=== PATIENT | female | born 1940 | race Caucasian/White ===

== ENCOUNTER 2018-01-05 09:03 | Inpatient (IN) ==
[~2018-01-05 09:03] MED LIST: ACETAMINOPHEN 500 MG TABLET PO ONE; DEXAMETHASONE 4 MG/ML INJECTION IVP ONE; EPINEPHrine PF 0.25 MG, BUPIVACAINE 0.25% PF 30 ML, KETOROLAC INJ 60 MG in NS 30 ML OPSITE ONE; FAMOTIDINE PB 20 MG/50 ML BAG IV ONE; MELOXICAM 15 MG TABLET PO ONE; METOCLOPRAMIDE 10mg/2ml INJECTION IVP ONE; ONDANSETRON 4 MG/2 ML INJECTION IVP ONE; TRANEXAMIC ACID 1,000 MG in NS 100 ML IV ONE
[2018-01-05] MEDS ORDERED: SALINE FLUSH 10ml SYRINGE IV PRN (09:14)
[2018-01-05 09:32] VITALS: BMI 26.9
[2018-01-05] MEDS ORDERED: PROPOFOL 500 MG/50 ML VIAL ONE (10:04)
--- NOTE | 2018-01-05 10:18 | XRay Report ---
Indication: right hip pain/fell PROCEDURE: XR pelvis w/ 1 view RT hip: Encounter: Initial Comparison: September 03, 2017 Findings: There is no acute fracture, dislocation or malalignment identified. Right hip replacement is stable in appearance. Moderate to severe joint space narrowing in the left hip. Pubic symphysis appears intact. Impression: No acute osseous abnormality. .
[2018-01-05] MEDS ORDERED: VANCOMYCIN 1,000 MG INJECTION ONE (10:42)
[2018-01-05] MEDS: LIDOCAINE 1% (10mg/ml) 2mL INJ PF SDV ID ONE ×2 (10:55→11:04)
[2018-01-05] MEDS: LR 1,000 ML IV SCH ×2 (10:55→12:15)
[2018-01-05] MEDS: NOZIN NASAL SWAB NAS SCH ×5 (11:04→21:00)
[2018-01-05] MEDS ORDERED: MIDAZOLAM 2mg/2ml INJECTION ONE (11:06)
[2018-01-05] MEDS ORDERED: METOPROLOL 5mg/5ml INJECTION IVP ONE ×3 (11:06→12:01)
[2018-01-05] MEDS ORDERED: BUPIVACAINE 0.75%/DEXTROSE 8.5% SPINAL 2 ML AMPULE IJ ONE (11:08)
[2018-01-05] MEDS ORDERED: SALINE FLUSH 10ml SYRINGE ONE (11:35)
[2018-01-05] MEDS ORDERED: PHENYLEPHRINE INJ 10 MG/ML VIAL IV ONE (11:35)
[2018-01-05] MEDS ORDERED: VANCOMYCIN 1,000 MG INJECTION IAR ONE (11:47)
[2018-01-05] MEDS ORDERED: CEFAZOLIN 1 G INJECTION IVP ONE (11:49)
[2018-01-05] MEDS ORDERED: ROPIVACAINE 0.5% (5mg/ml) 30ml INJ ONE (12:31)
--- NOTE | 2018-01-05 12:42 | Operative Note ---
- Procedure Preoperative Diagnosis: Left knee primary degenerative joint disease Postoperative Diagnosis: Same as preoperative diagnosis. Surgeon: Maryann Talley MD Exercise Rider: Emeka Livingston Complications: None. Anesthesia: Spinal. Estimated Blood Loss: See Anesthesia Record. Fluids: Please see Anesthesia Record. Description of Procedure: Mrs. Byrne and her left knee were identified and marked in the preoperative holding area. She was brought back to the operating suite. Spinal anesthetic was administered and she was placed supine on the operating table. The left lower extremity was prepped and draped in my normal sterile fashion. Timeout was performed. The [email or web address] robotic arm was used during the surgery. She had a correctable valgus deformity and hyperextension of about 3. A standard anterior midline incision followed by medial parapatellar arthrotomy was performed. Anterior fat pad and meniscus were removed. She exposed bone of the tibial plateau laterally as well as the undersurface of the patella. The patella was everted and a patella osteotomy was performed leaving 12 mm of bone. Tibial and femoral arrays and checkpoints were placed both within the original incision. The bone was then registered with the [email or web address] robot. Osteophytes were removed and gaps were captured both 90 and 0 degrees with correction. [email or web address] robotic software was utilized to obtain 18 mm gaps in flexion and 16 mm gaps in extension. The [email or web address] robotic arm was then used to assist with the bone cuts. Posterior osteophytes and remaining meniscus were removed. Trial components were placed. We used a 3 femur and a 3 tibia with a 9 mm spacer and a 29 patella. She tracked well and was well balanced throughout range of motion. The tibia was stamped at the proper rotation. Trial components fit well and bone quality was adequate so we proceeded with press-fit components. Components were press-fit into place. A final spacer was also placed. The knee was ranged one more time to ensure good stability, balance and patellar tracking. 1 g of vancomycin powder was then placed into the knee joint. The capsulotomy was then closed with #1 Vicryl. I then left my assistant activities director to close the subcutaneous tissue with 2-0 Vicryl. Running 4-0 Monocryl will be used in the subcuticular layer. Dermabond will be used on the skin followed by sterile dressing. After drapes are removed patient will be taken to recovery room under the care of anesthesia.
--- NOTE | 2018-01-05 12:54 | Anesthesia Preoperative Report ---
Anesthesia Preoperative Record - Date and Time Date: 01/05/18 Preoperative Diagnosis: Arthroplasty Total Knee w/ Robot Jared,M17.12 Proposed Procedure: Left TKA NPO Since Date: 01/05/18 NPO Since Time: 00:00 Allergies/Adverse Reactions: Allergies Allergy/AdvReac Type Severity Reaction Status Date / Time codeine Allergy Unknown NAUSEA & Verified 12/09/17 14:01 VOMITING hydrocodone Allergy Unknown Nausea and Verified 01/05/18 09:48 Vomiting Sulfa (Sulfonamide Allergy Unknown SWELLING Verified 12/09/17 14:01 Antibiotics) - Vital Signs Vital Signs: Temperature 97.6 F 01/05/18 09:32 Pulse Rate 133 H 01/05/18 10:36 Respiratory Rate 15 01/05/18 09:32 Blood Pressure 172/86 H 01/05/18 09:32 Pulse Oximetry 98 01/05/18 09:32 Height and Weight: Height 1.57 m Weight 66.7 kg Body Mass Index 26.9 - Medications Inpatient Medications: Current Medications Lactated Ringer's (Lactated Ringers) 1,000 mls @ 50 mls/hr IV .Q20H YECENIA Last Admin: 01/05/18 12:15 Dose: 50 mls/hr Sodium Chloride (Iv Flush) 10 - 80 ml IV PRN PRN PRN Reason: Flushing Home Medications: Home Medications Medication Instructions Recorded Confirmed Type cyclobenzaprine 5 mg tablet 5 - 10 mg PO TID PRN tab 09/03/17 01/05/18 History Ascorbate Calcium [Vitamin C] 500 mg PO DAILY 12/29/17 01/05/18 History Aspirin [Aspirin EC] 81 mg PO DAILY 12/29/17 01/05/18 History Diclofenac Sodium [Voltaren] 75 mg PO BID 12/29/17 01/05/18 History Estradiol [Estrace] 1 mg PO DAILY 12/29/17 01/05/18 History Furosemide [Lasix] 1 tab PO DAILY 12/29/17 01/05/18 History Gabapentin [Neurontin] 600 mg PO TID 12/29/17 01/05/18 History Lisinopril/Hctz 20/25 [Prinzide 1 tab PO DAILY 12/29/17 01/05/18 History 20/25] MedroxyPROGESTERone [Provera] 2.5 mg PO DAILY 12/29/17 01/05/18 History Vitamin B Complex [Balanced B-100] 1 each PO DAILY 12/29/17 01/05/18 History ergocalciferol (vitamin D2) 50,000 50,000 unit PO DAILY #2 cap 12/29/17 Rx unit capsule Omeprazole 20 mg PO PRN 01/05/18 01/05/18 History Is Patient on Beta Onesimo?: No - Medical History Respiratory: DENIES: Sleep Apnea Cardiovascular: Reports: Hypertension, High Cholesterol Neuro/Musculoskeletal: Reports: HX.MS.OSAR (knee problems), Back Problems ( spinal stenosis), Syncope - Surgical History GI Surgery/Treatments: Reports: Appendectomy, Cholecystectomy, Colonoscopy, EGD (esophagogastric fndoplsty) Surgery/Treatment: REPORT: Other (bladder lift) Musculoskeletal Surgery/Tx: Reports: Shoulder Arthroscopy (Rt RCR) Reproductive Surgery/Treatment: Reports: Hysterectomy, Other (cystocele rectocele repair vag vault) Anesthesia Reactions: None Hx Family Anesthesia Reaction: No History of Motion Sickness: No - Social History Smoking Status: Never smoker Hx Chewing Tobacco Use: No Second Hand Exposure: No Substance Use Type: does not use Alcohol Intake: never - Pertinent Findings Laboratory: CBC and BMP 01/05/18 09:54 01/05/18 09:54 BMP 01/05/18 09:54 Sodium 142 Potassium 3.6 Chloride 100 Carbon Dioxide 30 BUN 16.0 Creatinine 0.5 L Glucose 110 Calcium 9.6 Urine 01/05/18 Range/Units 10:27 Urine Color Yellow (YELLOW) Urine Clarity Clear Urine pH 6.0 (5.0-8.0) Ur Specific [place] 1.020 (1.015-1.025) Urine Protein Negative (NEGATIVE) Urine Glucose (UA) Negative (NEGATIVE) EKG: Sinus Tachycardia (Rate of 130's) - Physical Exam Respiratory Exam: Present: lungs clear Cardiovascular Exam: Present: regular rate and rhythm - Airway Assessment Mallampati Score: II TMD: 3 Fingerbreadths Neck Extension: fair Overall Assessment: no airway concerns - ASA ASA Score: 3 - Plan Anesthesia: Neuroaxial Regional/Trunk Block: Spinal - Discussion Discussion: Discussed risks/options/alternatives of anesthesia and questions answered. Patient consents. Nursing pain assessment noted. Present for Discussion: family member Attestation Statement: Prior to the delivery of any anesthetic medication, I examined the patient, developed the plan, obtained the patient's consent and discussed the risk and benefits of the procedure with the patient/guardian. - Additional Information Seen by Anesthesia: Yes
--- NOTE | 2018-01-05 12:56 | Anesthesia Procedure Note ---
Peripheral Nerve Blockade - Procedure Physician: Riki Talley MD Date: 01/05/18 Surgical Procedure: Left TKA Discussion: Discussed risks/options/alternatives of anesthesia and questions answered. Patient consents. Nursing pain assessment noted. Block Start: 12:50 Block Stop: 12:51 Blocked Employed: Adductor Canal Indication: Post-Operative Pain Approach: Left Side Confirmed Position: Supine Patient: Consent, Risks/Benefits Discussed, Informed, Post Block Act. Discussed IV Sedation: No Initial Vital Signs: Temperature 97.6 F 01/05/18 09:32 Temperature Source Oral 01/05/18 09:32 Pulse Rate 128 H 01/05/18 09:32 Respiratory Rate 15 01/05/18 09:32 Blood Pressure 172/86 H 01/05/18 09:32 Blood Pressure Mean 114 01/05/18 09:32 Blood Pressure Position Sitting 01/05/18 09:32 Pulse Oximetry 98 01/05/18 09:32 Oxygen Delivery Method 01/05/18 09:32 Post Vital Signs: Temperature 97.6 F 01/05/18 09:32 Pulse Rate 133 H 01/05/18 10:36 Respiratory Rate 15 01/05/18 09:32 Blood Pressure 172/86 H 01/05/18 09:32 Pulse Oximetry 98 01/05/18 09:32 Initial Pain Pain Score: 0 Post Block Pain Score: 0 Prep: Chlorhexadine/ETOH Ultrasound Used?: Yes - Injectate Ropivacaine (%): 0.5 Ropivacaine (mL): 20 Was Epi 1:200,000 Used?: No Injection: Injection made incrementally with constant monitoring and aspiration every ml
--- NOTE | 2018-01-05 13:19 | XRay Report ---
Indication: postoperative image PROCEDURE: XR knee LT 2V: Encounter: Initial Comparison: None Findings: Postoperative changes of left total knee replacement are seen. There is expected postoperative subcutaneous gas. No evidence of hardware failure or acute fracture. No retained radiopaque surgical instruments or sponges. Overlying material causing artifact. Impression: New left total knee prosthesis without evidence of immediate complication. .
[2018-01-05] MEDS ORDERED: DiphenhydrAMINE 25 MG CAPSULE PO PRN (13:51)
[2018-01-05] MEDS ORDERED: NOZIN NASAL SWAB NAS ONE (13:51)
[2018-01-05] MEDS ORDERED: DiphenhydrAMINE 50 MG/ML INJECTION IVP PRN (13:51)
[2018-01-05] MEDS ORDERED: LORazepam 1 MG TABLET PO PRN (13:51)
[2018-01-05] MEDS ORDERED: ONDANSETRON 4 MG/2 ML INJECTION IVP PRN (13:51)
[2018-01-05] MEDS ORDERED: CYCLOBENZAPRINE 5 MG TABLET PO PRN (13:51)
[2018-01-05] MEDS: NS 1,000 ML IV SCH (13:52)
--- NOTE | 2018-01-05 14:59 | Consult Note ---
Consult Information - Data of Consult Consult date: 01/05/18 Requesting Physician: Riki Talley MD Primary Care Provider: Fredrick Kellogg II, MD Family Provider: Fredrick Kellogg II, MD - Consult Narrative Reason for consult: sinus tachycardia History of present illness: Lacy Byrne is a pleasant 77 y/o woman seen in consultation from Dr. Talley. She was admitted on 01/05/18 for an elective left knee arthroplasty. Prior to surgery , she was found to be in sinus tachycardia with a rate of 123. She was given IV beta alyssa which brought her rate down and Dr. Talley proceeded with surgery. She was seen in room 123, alert and oriented, with several family members at bedside. She denies ever having this before. She denies any chest pain, dyspnea at rest or on exertion, unilateral or b/l leg swelling, anxiety or panic attacks, vomiting or diarrhea. She denies any recent fever or chills, cough, congestion, or dysuria. She c/o urinary frequency and urgency. Per her family, she is a very busy woman and will work until all the work is done, and the last 2 days has actually been cleaning excessively. She admits that she probably isn't eating as well and as much as she should be -- and family report that after her in September, at one point she was only eating a breakfast bar per day. On Nov 26, 2017, while she was talking with family she suddenly wasn't making sense and was having difficulty speaking. She was taken to the ED where CT scan was normal. She was discharged home with possible diagnoses of hypoglycemia and/or TIA. An MRI done on 11/30/17 showed: "Cortical atrophy with fairly extensive periventricular and subcortical white matter changes. Otherwise normal MR brain with and without contrast. No evidence for acute intracranial hemorrhage, acute intracranial infarct, or mass." Her granddaughter also reports that she has been extremely tired lately. She fell asleep in [place] on Thursday, and more impressively she fell asleep while standing up mopping. They have not seen any seizure like activity or syncope -- they literally see her head nodding off. She had 2 falls in the last couple of days because of her sleepiness. She has been seen holding onto furniture after standing b/c of lightheadedness. Per Dr. Kellogg's records, she had a UA done on 12/14/17 that was negative for UTI. She was started on oxybutynin 5 mb BID for overactive bladder. She does not see a [employer] service technician. She takes lisinopril/HCTZ and Lasix for HTN. TSH on 11/17/17 was normal at 1.05. Past Medical History Syncope Cataract Hypertension Dyslipidemia DDD and lumbar stenosis of L4-L5 with chronic pain Peripheral Neuropathy OAB GERD Surgical History: LEFT TOTAL KNEE ARTHROPLASTY 01/05/18. Right shoulder repair massive traumatic RCT, biceps tenotomy 10/22/16. BUNIONECTOMY 2014. RT TOTAL HIP 01/2011. EGD, 2005. COLONOSCOPY. VAGINAL VAULT RECONSTRUCTION, BLADDER LIFT, CYSTOCELE, RECTOCELE 2001. APPENDECTOMY, 1992. CHOLECYSTECTOMY, 1992 Family History: Family History (Last Reviewed 12/09/17 @ 14:08 by Riki Talley MD) Mother Stroke Hypertensive disorder Heart failure Arthritis Aneurysm Father Heart attack Brother Stroke Hypertensive disorder Family History Updates: Father had heart disease and of a massive AL at age 73. Her mother had heart disease and had aortic valve replacement at age 88. She developed dementia and in her sleep at age 93. Brothers have had heart disease and stroke. She had a sister but she at . She lost a daughter who had a history of substance abuse. Son has PAT. 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 Kellogg Neuro _ Dr. Mi Review of Systems All systems PM: 10-point ROS was reviewed, no additional remarkable complaints except - Constitutional Constitutional: Present: as per HPI, daytime sleepiness. Absent: chills, fever( s), increased appetite, weight loss - EENMT Eyes: Absent: change in vision Balance: Present: as per HPI. Absent: vertigo Nose: Absent: obstruction Mouth/Throat: Absent: sore throat, changes in swallowing - Cardiovascular Cardiovascular: Absent: chest pain, palpitations Rhythm: Absent: abnormal rhythm Vascular: Absent: pallor of an extermity, pedal edema - Respiratory Respiratory: Absent: cough, dyspnea, dyspnea on exertion - Gastrointestinal Gastrointestinal: Absent: abdominal pain, constipation, diarrhea, nausea, vomiting - Genitourinary Genitourinary: Present: urinary frequency, urinary urgency. Absent: dysuria - Musculoskeletal Musculoskeletal: Present: as per HPI, back pain (chronic) - Integumentary/Breasts Integumentary: Absent: rash, wounds - Neurological Neurological: Present: as per HPI, dizziness, frequent falls, numbness ( intermittent to both legs). Absent: abnormal movements, abnormal speech, confusion, focal weakness, loss of vision, memory loss, vertigo - Psychiatric Psychiatric: Absent: anxiety, depression - Endocrine Endocrine: Absent: flushing, palpitations - Hematologic/Lymphatic Hematologic/Lymphatic: Present: easy bruising - Allergic/Immunologic Allergic/Immunologic: Absent: seasonal rhinorrhea Medications Home Medications Medication Instructions Recorded Confirmed Type cyclobenzaprine 5 mg tablet 5 - 10 mg PO TID PRN tab 09/03/17 01/05/18 History Ascorbate Calcium [Vitamin C] 500 mg PO DAILY 12/29/17 01/05/18 History Aspirin [Aspirin EC] 81 mg PO DAILY 12/29/17 01/05/18 History Diclofenac Sodium [Voltaren] 75 mg PO BID 12/29/17 01/05/18 History Estradiol [Estrace] 1 mg PO DAILY 12/29/17 01/05/18 History Furosemide [Lasix] 1 tab PO DAILY 12/29/17 01/05/18 History Gabapentin [Neurontin] 600 mg PO TID 12/29/17 01/05/18 History Lisinopril/Hctz 20/25 [Prinzide 1 tab PO DAILY 12/29/17 01/05/18 History 20/25] MedroxyPROGESTERone [Provera] 2.5 mg PO DAILY 12/29/17 01/05/18 History Vitamin B Complex [Balanced B-100] 1 each PO DAILY 12/29/17 01/05/18 History ergocalciferol (vitamin D2) 50,000 50,000 unit PO DAILY #2 cap 12/29/17 Rx unit capsule Omeprazole 20 mg PO PRN 01/05/18 01/05/18 History Allergies Allergy/AdvReac Type Severity Reaction Status Date / Time codeine Allergy Unknown NAUSEA & Verified 12/09/17 14:01 VOMITING hydrocodone Allergy Unknown Nausea and Verified 01/05/18 09:48 Vomiting Sulfa (Sulfonamide Allergy Unknown SWELLING Verified 12/09/17 14:01 Antibiotics) Exam Vital Signs: Temperature 97.0 F 01/05/18 13:55 Pulse Rate 85 01/05/18 13:55 Respiratory Rate 16 01/05/18 13:55 Blood Pressure 118/82 01/05/18 13:55 Pulse Oximetry 99 01/05/18 13:55 Height/Weight/BMI: Height 1.57 m Weight 66.7 kg Body Mass Index 26.9 - Constitutional Present: no acute distress, well nourished, well developed - Routine HEENT Exam Head: Present: normocephalic Eye: Present: PERRL. Absent: conjunctival icterus, scleral injection ENT: Present: mucous membranes moist, oropharynx clear - Routine Neck Exam Present: supple. Absent: JVD, lymphadenopathy - Routine Respiratory Exam Present: CTA bilaterally - Routine Cardiovascular Exam Present: RRR, S1, S2 - Routine Abdominal Exam Present: soft, normoactive bowel sounds, non distended, non tender - Routine Extremities Exam Present: no edema, pulses intact, normal capillary refill Comments: dressing to left knee; polar pack in place - Routine Skin Exam Present: dry, warm, ecchymosis (small areas of bruising to BUE) - Routine Neurological Exam Present: alert, oriented X3, CN II-XII intact, vision grossly intact, hearing grossly intact, normal speech - Routine Psychiatric Exam Present: normal affect, normal thought process, cooperative Results - Labs CBC & Chem 7: 01/05/18 09:54 01/05/18 09:54 - ECG Data Tracing #1 I reviewed this ECG and interpreted as documented below: sinus tach with 1st deg AVB Assessment and Plan Assessment and Plan: IMPRESSION Sinus tachycardia s/p left total knee replacement Lightheadedness, possible syncope Cataract Hypertension - takes Lisinopril/hctz and Lasix daily Dyslipidemia DDD and lumbar stenosis of L4-L5 with chronic pain Peripheral Neuropathy OAB - started oxybutynin 5 mg bid 12/14/17 GERD PLAN Sinus tachycardia likely multifactorial. -Positive family history of heart disease though pt has no history. VTE not suspected. No recent illness. -questionable syncope vs. dozing off - consider echo if arrhythmia noted on tele. -could also be r/t taking 2 diuretics, especially considering reduced oral intake recently. -hold Lasix and lisinopril/hctz and monitor bp -agree with IVF. BP stable. -oxybutynin was not on reconciled meds but this med has common side effects of dizziness and drowsiness. -Could try to hold oxybutynin especially if diuretics are changed at dc. -last tsh was normal 1.05 in Oct, 2017 -check mg and a1c. CBC and BMP were normal. She was not anemic. Thank you for this consult. DVT Prophylaxis: SCD's GI Prophylaxis: other (omeprazole) Resuscitation Status: Full Code - Physician Narrative Physician: Attila Shipley MD Narrative: Date: 01/05/18 Time: 1834 Have independently interviewed and examined pt. Chart reviewed. Case discussed with my PA. Above care plan developed with my supervision; agree with above. Presents for elective knee surgery. Tachy prior to surgery-EKG showing sinus tach. No chest pain/pressure. Breathing has been stable. Given IV metoprolol and HR decreased. Able to get through surgery well. Post op, reports pain doing well (~3/10 pain). Did work with therapy this afternoon and able to walk to bathroom and walk to door of room. Notes urinary frequency-recently stated on oxybutynin for OAB. On HCTZ and Lasix. Lungs: clear CV: regular AB: soft nt MSE: awake alert appropriate Plan: Monitor HR and rhythm - currently in NSR; will have low dose IV metoprolol available if HR is sustained above 135. Hold Lasix/HCTZ due to increase urinary frequency/urgency and dizziness. Hold oxybutynin. Monitor lab. Continue with post op care. Will continue to follow during hospitalization. Hospital Course Summary Disclaimer: The visit summary below is not to be considered part of the above Progress Note. Hospital Course: 01/05-Hospitalist Sinus tachycardia likely multifactorial. -Positive family history of heart disease though pt has no history. VTE not suspected. No recent illness. -questionable syncope vs. dozing off - consider echo if arrhythmia noted on tele. -could also be r/t taking 2 diuretics, especially considering reduced oral intake recently. -hold lasix and lisinopril/hctz and monitor bp -agree with IVF. BP stable. -oxybutynin was not on reconciled meds but this med has common side effects of dizziness and drowsiness. -Could try to hold oxybutynin especially if diuretics are changed at dc. -last tsh was normal 1.05 in Oct, 2017 -check mg and a1c. CBC and BMP were normal. She was not anemic.
[2018-01-05] MEDS: GABAPENTIN 600 MG TABLET PO SCH ×2 (15:01→20:57)
[2018-01-05] MEDS: ACETAMINOPHEN 325 MG TABLET PO SCH ×3 (15:01→20:57)
[2018-01-05] MEDS: DICLOFENAC SODIUM DR 25 MG TABLET PO SCH (17:14)
[2018-01-05] MEDS: CEFAZOLIN 1 G in NS 50 ML IV SCH (18:31)
[2018-01-05] MEDS ORDERED: METOPROLOL 5mg/5ml INJECTION IVP PRN (18:44)
[2018-01-05] MEDS: DOCUSATE SODIUM 100 MG CAPSULE PO SCH (20:56)
[2018-01-05] MEDS: SENNOSIDES 8.6 MG TABLET PO SCH (20:56)
[2018-01-05] MEDS: ASPIRIN *EC* 81 MG TABLET PO SCH (20:57)
[2018-01-06] MEDS: NS 1,000 ML IV SCH ×3 (00:57→16:22)
[2018-01-06] MEDS: CEFAZOLIN 1 G in NS 50 ML IV SCH (03:56)
[2018-01-06] MEDS ORDERED: OMEPRAZOLE 20 MG CAPSULE PO PRN (06:30)
[2018-01-06] MEDS: NOZIN NASAL SWAB NAS SCH ×4 (06:50→22:21)
[2018-01-06] MEDS: TRAMADOL 50 MG TABLET PO PRN (06:50)
[2018-01-06] MEDS: POLYETHYL GLYCOL 3350 17gm PACKET PO SCH (08:16)
[2018-01-06] MEDS: ASPIRIN *EC* 81 MG TABLET PO SCH ×2 (08:17→20:11)
[2018-01-06] MEDS: GABAPENTIN 600 MG TABLET PO SCH ×2 (08:17→15:59)
[2018-01-06] MEDS: DOCUSATE SODIUM 100 MG CAPSULE PO SCH ×2 (08:17→20:10)
[2018-01-06] MEDS: DICLOFENAC SODIUM DR 25 MG TABLET PO SCH ×2 (08:17→16:58)
[2018-01-06] MEDS: ACETAMINOPHEN 325 MG TABLET PO SCH ×4 (08:17→20:10)
[2018-01-06] MEDS ORDERED: FUROSEMIDE 20 MG TABLET PO SCH (09:00)
[2018-01-06] MEDS ORDERED: LISINOPRIL/HCTZ 20/25 MG TABLET PO SCH (09:00)
--- NOTE | 2018-01-06 09:05 | Orthopedic Progress Note ---
Date: Date: 01/06/18 Time: 900 Subjective/Severity of Illness: Lacy is sitting up in the chair this morning when visiting. HR has remained well controlled through the night, rate 80-90s. Hospitalist consulted for sinus tachycardia pre-operatively. Diuretics have been held due to decrease appetite/ PO intake and episodes of increase daytime sleepiness. Pain has been well controlled, has been up ambulating. Sam wrap removed, bloody drainage noted to distal mepilex dressing. Dressing was removed, surgical incision cleansed with Chloraprep, and bishnu applied for improved closure. New Mepilex applied. Denies any other concerns this morning. Her son is at bedside. Exam - Constitutional Vital Signs: Temperature 97.4 F 01/06/18 07:54 Pulse Rate 97 01/06/18 08:26 Respiratory Rate 18 01/06/18 07:54 Blood Pressure 150/84 H 01/06/18 07:54 Pulse Oximetry 95 01/06/18 07:54 General: cooperative, no acute distress, well developed, well groomed Nutritional Appearance: well nourished Orientation: alert, oriented x3 - LLE Postoperative Appearance: normal postoperative swelling, knee alignment neutral , knee range of motion normal for postoperative timeframe, neurovascullary intact to extremities Ankle Range of Motion: normal ROM Neurological: no deficits, normal to light touch Vascular: dorsalis pedis pulse within normal limits - Wound Left Knee Wound Drainage Amount: Moderate (bishnu placed along surgical incision with good closure, drainage stopped. New mepilex dressing applied.) Wound Drainage Description: Sanguineous - Labs Result Diagrams: 01/06/18 04:01 01/06/18 04:01 Abnormal lab results 01/05/18 01/05/18 01/05/18 Range/Units 09:54 09:54 10:27 Hgb (12-16) GM/DL Hct (36-46) % Neutrophils % (Manual) 73.0 H (33-66) % Lymphocytes % (Manual) 20.0 L (23-45) % BUN (7-17) MG/DL Creatinine 0.5 L (0.7-1.2) mg/dL BUN/Creatinine Ratio 32 H (6-26) RATIO Glucose (65-110) MG/DL Urine Ketones 1+ A (NEGATIVE) 01/06/18 01/06/18 Range/Units 04:01 04:01 Hgb 11.4 L D (12-16) GM/DL Hct 34.4 L D (36-46) % Neutrophils % (Manual) (33-66) % Lymphocytes % (Manual) (23-45) % BUN 18.0 H (7-17) MG/DL Creatinine 0.4 L (0.7-1.2) mg/dL BUN/Creatinine Ratio 45 H (6-26) RATIO Glucose 116 H (65-110) MG/DL Urine Ketones (NEGATIVE) H & H 18 01/06/18 Range/Units 09:54 04:01 Hgb 13.5 11.4 L D (12-16) GM/DL Hct 40.8 34.4 L D (36-46) % Orthopedic Assessment and Plan (1) Primary osteoarthritis of left knee Status: Acute Assessment and Plan: Current anti-coagulation protocol with ASA 81mg BID and SCDs for VTE prophylaxis. Hospitalist consulted for sinus tachycardia pre-operative and medically managing. PT/OT services to improve independent function. Discharge Planning per Case Management. - Anticoagulation Therapy Anticoagulation: ASA 81 mg PO BID x6 weeks Hospital Course Summary Disclaimer: The visit summary below is not to be considered part of the above Progress Note. Hospital Course: 01/05-Hospitalist Sinus tachycardia likely multifactorial. -Positive family history of heart disease though pt has no history. VTE not suspected. No recent illness. -questionable syncope vs. dozing off - consider echo if arrhythmia noted on tele. -could also be r/t taking 2 diuretics, especially considering reduced oral intake recently. -hold lasix and lisinopril/hctz and monitor bp -agree with IVF. BP stable. -oxybutynin was not on reconciled meds but this med has common side effects of dizziness and drowsiness. -Could try to hold oxybutynin especially if diuretics are changed at dc. -last tsh was normal 1.05 in Oct, 2017 -check mg and a1c. CBC and BMP were normal. She was not anemic.
--- NOTE | 2018-01-06 09:54 | Progress Note ---
- Date 01/06/18 Subjective: F/U: Total left knee replacement - POD #1, sinus tachycardia. Lacy is seen this morning while sitting in her recliner, having just finished all her breakfast. She admits she is pleasantly surprised at how well she feels she is doing and how well her pain is controlled. She denies any complaint or concerns. No chest pain, shortness of breath, palpitations, dizziness or lightheadedness. Her appetite is stable and urinary output is adequate. No BM since 01/04, prior to her surgery but is passing gas. Heart rate has been fairly well controlled. Objective Vital signs: Temperature 97.4 F 01/06/18 07:54 Pulse Rate 97 01/06/18 08:26 Respiratory Rate 18 01/06/18 07:54 Blood Pressure 150/84 H 01/06/18 07:54 Pulse Oximetry 95 01/06/18 07:54 Rhythm: Normal Sinus Rhythm Height/Weight/BMI: Height 5 ft 2 in Weight 156 lb 4.924 oz Body Mass Index 26.9 Comments: Sitting in recliner, finishing eating breakfast. - Constitutional Present: no acute distress, well nourished, well developed, cooperative Comments: Very pleasant. - Routine HEENT Exam Head: Present: normocephalic, atraumatic Eye: Present: PERRL. Absent: conjunctival icterus ENT: Present: mucous membranes moist, oropharynx clear - Routine Respiratory Exam Present: CTA bilaterally. Absent: rales, respiratory distress, rhonchi, stridor , wheezes, crackles - Routine Cardiovascular Exam Present: RRR, S1, S2 - Routine Abdominal Exam Present: soft, normoactive bowel sounds, non distended, non tender - Routine Extremities Exam Present: edema (trace), pulses intact Comments: SCDs on right; polar pack on left knee. - Routine Back/Spine/Pelvis Exam Back/Spine: Present: full ROM. Absent: vertebral tenderness - Routine Musculoskeletal Exam Musculoskeletal: Present: moving extremities well - Routine Skin Exam Present: dry, warm. Absent: jaundice Comments: afebrile. - Routine Neurological Exam Present: alert, oriented X3, CN II-XII intact, moving all extremities, hearing grossly intact, normal speech - Routine Lymphatic Exam Lymphatic: Absent: lymphedema - Routine Psychiatric Exam Present: normal affect, cooperative, good insight, good judgment Results - Labs CBC & Chem 7: 01/06/18 04:01 01/06/18 04:01 Assessment and Plan Assessment and Plan: IMPRESSION Sinus tachycardia s/p left total knee replacement - 01/05/18, Dr. Talley. Lightheadedness, possible syncope Cataract Hypertension - takes Lisinopril/hctz and Lasix daily Dyslipidemia DDD and lumbar stenosis of L4-L5 with chronic pain Peripheral Neuropathy OAB - started oxybutynin 5 mg bid 12/14/17 GERD Post op anemia. PLAN - 01/06/18 - POD #1. Sinus tachycardia improved. Patient remains asymptomatic today. HR <100 and stable. Continue to monitor closely on telemetry. Blood pressure elevated. Will restart home lisinopril 20mg daily. Continue to hold Lasix, HCTZ and oxybutynin due to recent dizziness. Mild post-op anemia noted with Hgb 11.4. Will continue to monitor. Will recheck labs in AM to monitor blood counts, electrolytes and renal function. Encourage incentive spirometry and participation in therapies. BETH Change Neurontin to 1200mg at night and have 600mg TID prn to more closely reflect how patient has been using. DVT Prophylaxis: SCD's GI Prophylaxis: other (Prilosec) Resuscitation Status: Full Code - Time spent with patient Time with patient PN: 25 minutes - Physician Narrative Physician: Attila Shipley MD Narrative: Date: 01/06/18 Time: 1824 Have independently interviewed and examined pt. Chart reviewed. Case discussed with my PA. Care plan developed with my supervision; agree with above. Doing well today. Pain controlled. Eating well. No nausea or ab pain. Does report that she takes 2 Neurontin tablets at night routinely (and will use the other on as needed if going to be up on feel more during day). Lungs: clear bilaterally, no distress CV: tachy, regular; tele sinus tach at 113. AB: soft nt MSE: awake alert Plan: Will change Neurontin to 1200mg at night and have 600mg TID prn to more closely reflect how patient has been using. BP stable. Will continue to monitor HR; do have slight concern about starting BB with the lightheadedness pt has been having. Encourage therapy. Clinically improving. Hospital Course Summary Disclaimer: The visit summary below is not to be considered part of the above Progress Note. Hospital Course: 01/05/18 - Hospitalist Sinus tachycardia likely multifactorial. -Positive family history of heart disease though pt has no history. VTE not suspected. No recent illness. -questionable syncope vs. dozing off - consider echo if arrhythmia noted on tele. -could also be r/t taking 2 diuretics, especially considering reduced oral intake recently. -hold Lasix and lisinopril/hctz and monitor bp. -agree with IVF. BP stable. -oxybutynin was not on reconciled meds but this med has common side effects of dizziness and drowsiness. -Could try to hold oxybutynin especially if diuretics are changed at dc. -last tsh was normal 1.05 in Oct, 2017. -check mg and a1c. CBC and BMP were normal. She was not anemic. 01/06/18 - POD #1 Sinus tachycardia improved. Patient remains asymptomatic today. HR <100 and stable. Continue to monitor closely on telemetry. Blood pressure elevated. Will restart home lisinopril 20mg daily. Continue to hold Lasix, HCTZ and oxybutynin due to recent dizziness. Mild post-op anemia noted with Hgb 11.4. Will continue to monitor. Will recheck labs in AM to monitor blood counts, electrolytes and renal function. Encourage incentive spirometry and participation in therapies. Change Neurontin to 1200mg at night and have 600mg TID prn to more closely reflect how patient has been using.
[2018-01-06] MEDS ORDERED: FALL RISK - PHARMACY CONSULT MC ONE (09:55)
[2018-01-06] MEDS: LISINOPRIL 20 MG TABLET PO SCH (10:31)
[2018-01-06] MEDS ORDERED: SENNOSIDES 8.6 MG TABLET PO PRN (12:26)
[2018-01-06] MEDS ORDERED: GABAPENTIN 600 MG TABLET PO PRN (18:27)
[2018-01-06] MEDS: SENNOSIDES 8.6 MG TABLET PO SCH (20:12)
[2018-01-06] MEDS ORDERED: GABAPENTIN 600 MG TABLET PO SCH (21:00)
[2018-01-07] MEDS: TRAMADOL 50 MG TABLET PO PRN ×2 (01:16→09:07)
[2018-01-07] MEDS: NOZIN NASAL SWAB NAS SCH (05:56)
[2018-01-07 07:19] VITALS: RESP 14
--- NOTE | 2018-01-07 07:56 | Orthopedic Progress Note ---
Date: Date: 01/07/18 Time: 075 Subjective/Severity of Illness: Lacy is a little sore this AM. She slept well and denies chest pain or shortness of breath. She did get in the car at therapy yesterday. Discharge plan is to [facility]. Hospitalist service is on board for sinus tachycardia. Her rate this AM is 103. Their were no issues with drainage on her dressing over the night. Orthopedic Exam Vital signs: Temperature 98.6 F 01/07/18 07:17 Pulse Rate 103 H 01/07/18 07:17 Respiratory Rate 14 01/07/18 07:17 Blood Pressure 144/84 H 01/07/18 07:17 Pulse Oximetry 97 01/07/18 07:17 - Constitutional General Appearance: Present: alert, orientated x3 - Respiratory Exam Present: non-labored - Cardiovascular Exam Present: pedal pulses intact Capillary Refill: < 2-3 Seconds - Abdominal Exam Present: soft - Extremities Exam Present: edema (trace), pulses intact - Integumentary Exam Present: pink, warm, dry Comments: Mepliex dressing intact, dry. - Lymphatic Lymphatic: Absent: lymphedema - Neurological Exam Present: intact to light touch - Psychiatric Exam Present: alert, oriented, normal affect - Labs Result Diagrams: 01/07/18 03:57 01/07/18 03:57 Abnormal lab results 01/07/18 01/07/18 Range/Units 03:57 03:57 RBC 3.73 L (4.00-5.20) M/MM3 Hgb 11.7 L (12-16) GM/DL Hct 35.7 L (36-46) % Neut % (Auto) 77.5 H (33-66) % Lymph % (Auto) 15.0 L (23-45) % Neut # (Auto) 8.3 H (1.8-7.7) T/MM3 Creatinine 0.4 L (0.7-1.2) mg/dL BUN/Creatinine Ratio 30 H (6-26) RATIO H & H 01/05/18 01/06/18 01/07/18 Range/Units 09:54 04:01 03:57 Hgb 13.5 11.4 L D 11.7 L (12-16) GM/DL Hct 40.8 34.4 L D 35.7 L (36-46) % Orthopedic Assessment and Plan (1) Primary osteoarthritis of left knee Status: Acute Assessment and Plan: Current anti-coagulation protocol with ASA 81mg BID and SCDs for VTE prophylaxis. Hospitalist consulted for sinus tachycardia pre-operative and medically managing. PT/OT services to improve independent function. Discharge Planning per Case Management. Hospital Course Summary Disclaimer: The visit summary below is not to be considered part of the above Progress Note. Hospital Course: 01/05/18 - Hospitalist Sinus tachycardia likely multifactorial. -Positive family history of heart disease though pt has no history. VTE not suspected. No recent illness. -questionable syncope vs. dozing off - consider echo if arrhythmia noted on tele. -could also be r/t taking 2 diuretics, especially considering reduced oral intake recently. -hold Lasix and lisinopril/hctz and monitor bp. -agree with IVF. BP stable. -oxybutynin was not on reconciled meds but this med has common side effects of dizziness and drowsiness. -Could try to hold oxybutynin especially if diuretics are changed at dc. -last tsh was normal 1.05 in Oct, 2017. -check mg and a1c. CBC and BMP were normal. She was not anemic. 01/06/18 - POD #1 Sinus tachycardia improved. Patient remains asymptomatic today. HR <100 and stable. Continue to monitor closely on telemetry. Blood pressure elevated. Will restart home lisinopril 20mg daily. Continue to hold Lasix, HCTZ and oxybutynin due to recent dizziness. Mild post-op anemia noted with Hgb 11.4. Will continue to monitor. Will recheck labs in AM to monitor blood counts, electrolytes and renal function. Encourage incentive spirometry and participation in therapies. Change Neurontin to 1200mg at night and have 600mg TID prn to more closely reflect how patient has been using.
--- NOTE | 2018-01-07 08:11 | Extended Care Facility Orders ---
Admission Orders Admit to:: [facility] Allergies/Adverse Reactions: Allergies codeine Allergy (Unknown, Verified 12/09/17 14:01) NAUSEA & VOMITING hydrocodone Allergy (Unknown, Verified 01/05/18 09:48) Nausea and Vomiting Sulfa (Sulfonamide Antibiotics) Allergy (Unknown, Verified 12/09/17 14:01) SWELLING Admitting Diagnosis: Arthroplasty Total Knee w/ Robot Assi,M17.12 Admitting Physician: Riki Talley MD Attending Physician: Riki Talley MD Code Status: Full Code Anticiapted Length of Stay: 30 days or less Rehab Potential: good Rehab Prognosis: good Diet: 01/05/18 Lunch Regular Diet [DIET] Diet Modifications: Wound/Incision Care: Keep dressing on at all times. Do not get the incision wet. Call Dr Talley for any wound concerns. May use Facility Protocol or Standing Orders: Yes May have flu vaccine: Yes Evaluations/Treatment: PT, OT Fpc Certification: I certify that SNF services are required to be given on an Inpatient basis because of the patients need for [facility] care on a continuing basis for the condition(s) for which he/she received inpatient hospital services prior to his/her transfer to the SNF. SNF inpatient care is necessary for the following reasons Indication for Fpc: Postop Assessment Care - Additional Information In Event of Arrest: Start CPR,call 911,send patient to the ER Resident is Aware of Diagnosis: Yes Referrals: Riki Talley MD [Physician] - 01/27/18 1:30 pm Additional Orders: PT / OT to work with ambulation, WBAT, ROM, exercises and strengthening, ADLs, txfrs, and mobility/safety. May use polar pack to the knee. May use it real time trader or PRN. Always keep a towel between the skin and the ice pack. Use the incentive spirometer q 4 hrs while awake. Elevate the leg when possible to help minimize swelling.
[2018-01-07 08:21] VITALS: PULSE 100
[2018-01-07] MEDS: POLYETHYL GLYCOL 3350 17gm PACKET PO SCH (09:00)
[2018-01-07] MEDS: DICLOFENAC SODIUM DR 25 MG TABLET PO SCH (09:01)
[2018-01-07] MEDS: LISINOPRIL 20 MG TABLET PO SCH (09:01)
[2018-01-07] MEDS: DOCUSATE SODIUM 100 MG CAPSULE PO SCH (09:02)
[2018-01-07] MEDS: ASPIRIN *EC* 81 MG TABLET PO SCH (09:03)
[2018-01-07] MEDS: ACETAMINOPHEN 325 MG TABLET PO SCH (09:03)
--- NOTE | 2018-01-07 09:48 | Progress Note ---
- Date 01/07/18 Subjective: Patient is seen sitting in her chair after breakfast. She is quite conversational. She feels ok to go to [facility] today for continued healing. Her pain is currently a 7/10. Hasn't had pain meds today yet other than routine Tylenol. Pain worse with movement. "My leg feels heavy." BM last night. NO CP or SOA. Objective Vital signs: Temperature 98.6 F 01/07/18 07:17 Pulse Rate 100 01/07/18 08:20 Respiratory Rate 14 01/07/18 07:17 Blood Pressure 144/84 H 01/07/18 07:17 Pulse Oximetry 97 01/07/18 07:17 Rhythm: Normal Sinus Rhythm Height/Weight/BMI: Height 1.57 m Weight 70.6 kg Body Mass Index 26.9 - Constitutional Present: no acute distress, well nourished, well developed - Routine HEENT Exam Head: Present: normocephalic, atraumatic - Routine Respiratory Exam Present: CTA bilaterally. Absent: wheezes - Routine Cardiovascular Exam Present: RRR, no murmur - Routine Abdominal Exam Present: soft, non distended, non tender - Routine Extremities Exam Present: no edema, normal capillary refill Comments: polar pack on L knee - Routine Skin Exam Present: dry, warm - Routine Neurological Exam Present: alert, oriented X3 - Routine Lymphatic Exam Lymphatic: Absent: adenopathy - Routine Psychiatric Exam Present: normal affect, cooperative Results - Labs CBC & Chem 7: 01/07/18 03:57 01/07/18 03:57 Assessment and Plan Assessment and Plan: IMPRESSION Sinus tachycardia s/p left total knee replacement - 01/05/18, Dr. Talley. Hypertension - takes Lisinopril/hctz and Lasix daily Dyslipidemia DDD and lumbar stenosis of L4-L5 with chronic pain Peripheral Neuropathy OAB - started oxybutynin 5 mg bid 12/14/17 GERD Post op anemia. Cataract PLAN Telemetry reviewed. Occ sinus tach - patient remains asymptomatic today. Hgb stabilized. Stable for DC. Will continue the Lisinopril in place of lisinopril/HCTZ. Continue to hold Lasix. Continue to hold oxybutynin as she may not need it with the DC of 2 diuretics. DVT Prophylaxis: SCD's - Physician Narrative Physician: Attila Shipley MD Narrative: Date: 01/07/18 Time: 1300 Have independently interviewed and examined pt. Chart reviewed. Case discussed with my PA. Care plan developed with my supervision; agree with above. Doing well. Tolerating therapy. Breathing well. BP stable. CV: regular Lungs: clear, no distress MSE: awake alert Plan: Medically stable for discharge to skilled. Continue with lisinopril for BP control. Encourage therapy. F/U with PCP. Hospital Course Summary Disclaimer: The visit summary below is not to be considered part of the above Progress Note. Hospital Course: 01/05/18 - Hospitalist Sinus tachycardia likely multifactorial. -Positive family history of heart disease though pt has no history. VTE not suspected. No recent illness. -questionable syncope vs. dozing off - consider echo if arrhythmia noted on tele. -could also be r/t taking 2 diuretics, especially considering reduced oral intake recently. -hold Lasix and lisinopril/hctz and monitor bp. -agree with IVF. BP stable. -oxybutynin was not on reconciled meds but this med has common side effects of dizziness and drowsiness. -Could try to hold oxybutynin especially if diuretics are changed at dc. -last tsh was normal 1.05 in Oct, 2017. -check mg and a1c. CBC and BMP were normal. She was not anemic. 01/06/18 - POD #1 Sinus tachycardia improved. Patient remains asymptomatic today. HR <100 and stable. Continue to monitor closely on telemetry. Blood pressure elevated. Will restart home lisinopril 20mg daily. Continue to hold Lasix, HCTZ and oxybutynin due to recent dizziness. Mild post-op anemia noted with Hgb 11.4. Will continue to monitor. Will recheck labs in AM to monitor blood counts, electrolytes and renal function. Encourage incentive spirometry and participation in therapies. Change Neurontin to 1200mg at night and have 600mg TID prn to more closely reflect how patient has been using. 01/07/18 Telemetry reviewed. Occ sinus tach - patient remains asymptomatic today. Hgb stabilized. Stable for DC. Will continue the Lisinopril in place of lisinopril/HCTZ. Continue to hold Lasix. Continue to hold oxybutynin as she may not need it with the DC of 2 diuretics.
--- NOTE | 2018-01-07 10:47 | Discharge Summary ---
Orthopedic Discharge Info Date of admission: 01/06/18 14:55 Anticipated date of discharge: 01/07/18 Primary care physician: Fredrick Kellogg II, MD Attending Physician: Riki Talley MD Consults: 01/05/18 09:42 Consult to Anesthesiology [CONS] Routine Reason For Exam: Preoperative Assessment 01/05/18 13:51 Case Management Consult [CONS] Routine Reason For Exam: Discharge Planning DME-Walker [CONS] Routine Height: 5 ft 2 in Weight: 147 lb 0.773 oz Total Joint Outpatient Therapy [CONS] Routine Comment: Remove dressing in 2 weeks 01/05/18 14:00 Physician [Physician Consult] [CONS] Routine Consulting Provider: Attila Shipley Reason For Exam: pre op tachycardia Ordering Provider has Notified Scale Clerk: Yes 01/06/18 IRU Screening [Inpatient Rehab Screening] [CONS] Routine 01/06/18 14:00 Physician Consult [CONS] Routine Consulting Provider: Roman Shah Reason For Exam: SNU Ordering Provider has Notified Scale Clerk: Yes - Discharge Diagnosis (1) Primary osteoarthritis of left knee Status: Acute - Procedures Procedures: Left TKA - Laboratory Result Diagrams: 01/07/18 03:57 01/07/18 03:57 Laboratory: Abnormal lab results 01/07/18 01/07/18 Range/Units 03:57 03:57 RBC 3.73 L (4.00-5.20) M/MM3 Hgb 11.7 L (12-16) GM/DL Hct 35.7 L (36-46) % Neut % (Auto) 77.5 H (33-66) % Lymph % (Auto) 15.0 L (23-45) % Neut # (Auto) 8.3 H (1.8-7.7) T/MM3 Creatinine 0.4 L (0.7-1.2) mg/dL BUN/Creatinine Ratio 30 H (6-26) RATIO H & H 01/05/18 01/06/18 01/07/18 Range/Units 09:54 04:01 03:57 Hgb 13.5 11.4 L D 11.7 L (12-16) GM/DL Hct 40.8 34.4 L D 35.7 L (36-46) % Orthopedic Discharge HPI - HPI Comments This patient was admitted for elective surgical tx of end stage degenerative joint disease that failed to respond to conservative treatment. Further details of this is found in the admission H&P. Orthopedic Hospital Course Hospital course: After appropriate preoperative clearance and signing of operative consent, the patient was given IV antibiotics, according to orthopedic protocol. The patient was taken to the operating room and underwent elective left total knee arthroplasty. Following surgery, antibiotics were discontinued less than 24 hours according to joint protocol. Appropriate anticoagulants were initiated and SCDs added for DVT prevention. The dressing was clean, dry, and intact. Pain control was obtained via multimodal approach. Bowel motivation addressed with scheduled and PRN medications. Early mobilization was initiated through PT services. Discharge arrangements made by a collaborative effort between the patient and Case Management. Hospitalist was consulted for Tachycardia. Pre op EKG showed sinus tach with rate 120-130 range. Pre op IV Lopressor was given and HR remained in the 80- 90 range. Post op she was taken off both diuretics and Oxybutynin. She will remain off these for now, but they may need to be restarted in the future. Her lisinopril was continued. BPs are stable. HR is variable and will be monitored for now. She will f/u with her PCP post op. The following are the [facility] daily plans for this admission: 01/05/18 - Hospitalist Sinus tachycardia likely multifactorial. -Positive family history of heart disease though pt has no history. VTE not suspected. No recent illness. -questionable syncope vs. dozing off - consider echo if arrhythmia noted on tele. -could also be r/t taking 2 diuretics, especially considering reduced oral intake recently. -hold Lasix and lisinopril/hctz and monitor bp. -agree with IVF. BP stable. -oxybutynin was not on reconciled meds but this med has common side effects of dizziness and drowsiness. -Could try to hold oxybutynin especially if diuretics are changed at dc. -last tsh was normal 1.05 in Oct, 2017. -check mg and a1c. CBC and BMP were normal. She was not anemic. 01/06/18 - POD #1 Sinus tachycardia improved. Patient remains asymptomatic today. HR <100 and stable. Continue to monitor closely on telemetry. Blood pressure elevated. Will restart home lisinopril 20mg daily. Continue to hold Lasix, HCTZ and oxybutynin due to recent dizziness. Mild post-op anemia noted with Hgb 11.4. Will continue to monitor. Will recheck labs in AM to monitor blood counts, electrolytes and renal function. Encourage incentive spirometry and participation in therapies. Change Neurontin to 1200mg at night and have 600mg TID prn to more closely reflect how patient has been using. 01/07/18 Telemetry reviewed. Occ sinus tach - patient remains asymptomatic today. Hgb stabilized. Stable for DC. Will continue the Lisinopril in place of lisinopril/HCTZ. Continue to hold Lasix. Continue to hold oxybutynin as she may not need it with the DC of 2 diuretics. Follow-up is scheduled in 2-3 weeks. Discharge instructions given by orthopedic providers and nursing staff at discharge. Discharge condition was good. Pt is going to [facility] for several days and then plans to spend a week with her brother after that. Care extended to > 2 midnight stays?: Yes Comments: Tachycardia Observation for knee bleeding. Discharge Plan - Med Rec/Dispo Referrals/Follow Up: Riki Talley MD [Physician] - 01/27/18 1:30 pm [facility] Instructions: [facility] Postop Instructions Prescriptions: New Gabapentin [Neurontin] 600 mg PO TID PRN tab PRN Reason: Neuropathy Gabapentin [Neurontin] 1,200 mg PO HS tab Lisinopril [Prinivil] 20 mg PO DAILY tab PEG 3350 17gm PACKET [Miralax] 17 gm PO DAILY packet Sennosides [Senna Lax] 17.2 mg PO DAILY PRN tab PRN Reason: Constipation Aspirin *EC* [Ecotrin] 81 mg PO BID tab Docusate Sodium [Colace] 100 mg PO BID cap Tramadol [Ultram] 50 - 100 mg PO Q6H PRN #60 tab PRN Reason: Pain Acetaminophen [Tylenol] 650 mg PO QID tablet Continue Ascorbate Calcium [Vitamin C] 500 mg PO DAILY MedroxyPROGESTERone [Provera] 2.5 mg PO DAILY Estradiol [Estrace] 1 mg PO DAILY Diclofenac Sodium [Voltaren] 75 mg PO BID Omeprazole 20 mg PO PRN Vitamin B Complex [Balanced B-100] 1 each PO DAILY cyclobenzaprine 5 mg tablet 5 - 10 mg PO TID PRN tab PRN Reason: Pain ergocalciferol (vitamin D2) 50,000 unit capsule 50,000 unit PO DAILY #2 cap Discontinued Lisinopril/Hctz 20/25 [Prinzide 20/25] 1 tab PO DAILY Gabapentin [Neurontin] 600 mg PO TID Furosemide [Lasix] 1 tab PO DAILY Aspirin [Aspirin EC] 81 mg PO DAILY - Disposition 04 To [facility] Home/Facility - Dismissal Complete Discharge Instructions are:: Complete
[2018-01-07 11:58] VITALS: BP 121/68; TEMP 97.9; O2SAT 98
[2018-01-07] MEDS ORDERED: BISACODYL 10 MG SUPPOSITORY RECTALLY SCH (20:00)
== END 2018-01-07 13:05 | DRG 983 ==
LOC: SUR 09:03 → NMC.PERIOP 09:07 → SRG 13:40
PROVIDERS: ADMIT Orthopaedic Surgery; ATTEND Orthopaedic Surgery